=== PATIENT | female | born 1990 | race Caucasian/White ===

== ENCOUNTER 2020-01-31 09:59 | Emergency (ER) | payer MEDICARE, MEDICAID ==
[~2020-01-31] VITALS: Ht 167.6 cm; Wt 88.7 kg
[2020-01-31 10:00] VITALS: BP 129/78
[2020-01-31] MEDS ORDERED: penicillin G benzathine 1.2 million unit/2ml syringe IM ONE (10:45)
[2020-01-31] MEDS ORDERED: IBUP-1984 PO (11:07)
== END 2020-01-31 11:30 | disposition home or self-care (01) ==
LOC: ER 09:59
DX: J02.9 Acute pharyngitis, unspecified (principal); Z90.49 Acquired absence of other specified parts of digestive tract; Z79.899 Other long term (current) drug therapy
CPT/HCPCS: 87880; 96372; 99283; J0561

== ENCOUNTER 2020-06-24 18:46 | Emergency (ER) | payer MEDICARE, MEDICAID ==
[~2020-06-24] VITALS: Ht 167.6 cm; Wt 63.6 kg
[2020-06-24 18:51] VITALS: BP 139/78
[2020-06-24] MEDS ORDERED: ibuprofen tablet 400 MG TABLET PO ONE (18:55)
[2020-06-24] MEDS ORDERED: HYDROcodone/acetaminophen 10/325mg tab PO ONE (19:50)
[2020-06-24] MEDS ORDERED: HYDR-4353 PO (20:07)
== END 2020-06-24 20:57 | disposition home or self-care (01) ==
LOC: ER 18:46
DX: S82.831A Other fracture of upper and lower end of right fibula, initial encounter for closed fracture (principal); Z79.899 Other long term (current) drug therapy; W19.XXXA Unspecified fall, initial encounter; Y93.89 Activity, other specified; Y92.89 Other specified places as the place of occurrence of the external cause; Y99.8 Other external cause status
CPT/HCPCS: 29515; 73610; 99283

== ENCOUNTER 2020-07-15 12:52 | Day surgery (SDC) | payer MEDICARE, MEDICAID ==
[2020-07-09 15:11] LABS: BASOPHILS # (AUTO) 0.1 X10'3 (0-0.2); BASOPHILS % (AUTO) 0.8 % (0-1); EOSINOPHILS # (AUTO) 0.4 X10'3 (0-0.9); EOSINOPHILS % (AUTO) 3.3 % (0-6); LYMPHOCYTES # (AUTO) 2.9 X10'3 (1.1-4.8); LYMPHOCYTES % (AUTO) 23.3 % (21-51); MEAN CORPUSCULAR HEMOGLOBIN 27.2 PG (27.0-31.0); MEAN CORPUSCULAR HGB CONC 33.1 g/dL (33.0-36.5); MEAN CORPUSCULAR VOLUME 82.2 FL (78-98); MEAN PLATELET VOLUME 7.6 FL (7.4-10.4); MONOCYTES # (AUTO) 0.9 X10'3 (0-0.9); MONOCYTES % (AUTO) 7.1 % (2-12); NEUTROPHILS # (AUTO) 8.2 X10'3 (1.8-7.7); NEUTROPHILS % (AUTO) 65.5 % (42-75); PRE OP HEMATOCRIT 37.6 % (35.0-45.0); PRE OP HEMOGLOBIN 12.4 g/dL (12.0-16.0); PRE OP PLATELET COUNT 395 X10'3 (140-440); RED BLOOD COUNT 4.57 X10'6 (4.20-5.60); RED CELL DISTRIBUTION WIDTH 12.5 % (11.5-14.5)
[2020-07-09 15:17] LABS: ALBUMIN 3.4 G/DL (3.4-5.0); ALBUMIN/GLOBULIN RATIO 0.8 (1.1-1.5); ALKALINE PHOSPHATASE 80 IU/L (46-116); BLOOD UREA NITROGEN 14 MG/DL (7-18); BUN/CREATININE RATIO 18.2 (6.6-38.0); CALCIUM 8.7 MG/DL (8.5-10.1); CHLORIDE 102 MMOL/L (99-107); CREATININE 0.77 MG/DL (0.40-0.90); PRE OP ALT 16 U/L (30-65); PRE OP ANION GAP 11 (8-16); PRE OP AST 12 U/L (10-37); PRE OP BILIRUB, TOTAL 0.2 MG/DL (0.0-1.0); PRE OP GLUCOSE 97 MG/DL (70-104); PRE OP POTASSIUM 3.8 MMOL/L (3.4-5.1); PRE OP SODIUM 138 MMOL/L (135-145); TOTAL CARBON DIOXIDE 24.7 MMOL/L (24-32); TOTAL PROTEIN 7.7 G/DL (6.4-8.2); eGFR 87 ML/MIN
[2020-07-09 15:19] LABS: HCG SERUM QL NEGATIVE
[2020-07-15] VITALS (10 sets, daily range): BP systolic 106–137; BP diastolic 48–89
[~2020-07-15] VITALS: Ht 167.6 cm; Wt 68.0 kg
[~2020-07-15 12:52] MED LIST: HYDR-3973 PO; ceFAZolin 2gm in dextrose, iso 50 ML IV ONE; famotidine 20mg tablet PO ONE; ringers solution, lacted 1,000 ML IV SCH
[2020-07-15] MEDS ORDERED: MIDAZolam 5mg/5ml vial ONE (14:21)
[2020-07-15] MEDS ORDERED: fentaNYL/PF 50MCG/1 ML 2ML syringe ONE ×3 (14:21→16:17)
[2020-07-15] MEDS ORDERED: LIDOcaine 1%/PF 5ML 10 MG/ML VIAL ONE (14:24)
[2020-07-15] MEDS ORDERED: propofol inj 20 ML IV ONE (14:24)
[2020-07-15] MEDS ORDERED: ROPIVAcaine 0.5% (5mg/ml) 30ml vial ONE (14:24)
[2020-07-15] MEDS ORDERED: sevoflurane 250ml liquid IH ONE (14:35)
[2020-07-15] MEDS ORDERED: dexamethasone sod phosphate 10mg/ml inj ONE (14:35)
[2020-07-15] MEDS ORDERED: BUPIVAcaine/PF 2.5 mg/ml (0.25%) 30ml vial ONE (15:29)
[2020-07-15] MEDS ORDERED: ondansetron/PF 4mg/2ml inj ONE (16:34)
--- NOTE | 2020-07-15 17:08 | NUR ---
Received from OR via [facility] , accompanied by Anesthesiologist ALESSANDRA and report given by Anesthesiolgist. SPLINT RLE, TOES PWD. GATCHED FOOT OF BED. 20G LUE RUNNING LR AT 100ML. POS CAP REFIL. 10L MASK 96% SAT. VSS Addendum: 07/15/20 at 1723 by Kareem Stapleton RN, RN Amended: Links added.
[2020-07-15] MEDS ORDERED: ondansetron/PF 4mg/2ml inj IV ONE (18:15)
[2020-07-15] MEDS ORDERED: ringers solution, lacted 1,000 ML IV SCH (18:21)
[2020-07-15] MEDS ORDERED: morphine 4 MG/ML inj SYRINge IV PRN (18:25)
[2020-07-15] MEDS ORDERED: proCHLORperazine 10 MG/2 ml inj IV PRN (18:25)
[2020-07-15] MEDS ORDERED: ondansetron/PF 4mg/2ml inj IV PRN (18:25)
[2020-07-15] MEDS ORDERED: meperidine/PF 25mg/ml syringe IV PRN ×3 (18:25)
[2020-07-15] MEDS ORDERED: morphine 2 MG/ML inj. syringe IV PRN (18:25)
--- NOTE | 2020-07-15 18:49 | NUR ---
PATIENT AND FAMILY AND THEY HAVE VERBALIZED UNDERSTANDING, OPPORTUNITY TO ASK QUESTIONS GIVEN AND PATIENT COMFORTABLE WITH DC. IV TAKEN OUT WITHOUT COMPLICATION. PATIENT HAS MET ALL DC CRITERIA FOR DC HOME. I HAVE REVIEWED D/C INSTRUCTIONS WITH OUT VIA WHEELCHAIR WHERE PATIENT WAS TAKEN HOME WITH ALL BELONGINGS. FAMILY GAVE PATIENT TRANSPORT HOME. MAINTAINED NON WEIGHT BEARING. Addendum: 07/15/20 at 1851 by Kareem Stapleton RN, RN Amended: Links added.
== END 2020-07-15 18:49 | disposition home or self-care (01) ==
LOC: PAS 12:52
PROVIDERS: ATTEND Orthopaedic Surgery
DX: S82.61XA Displaced fracture of lateral malleolus of right fibula, initial encounter for closed fracture (principal); Z79.899 Other long term (current) drug therapy; Z20.828 Contact with and (suspected) exposure to other viral communicable diseases; G89.18 Other acute postprocedural pain; Z90.49 Acquired absence of other specified parts of digestive tract; Z98.42 Cataract extraction status, left eye; X58.XXXA Exposure to other specified factors, initial encounter; Y93.89 Activity, other specified; Y92.89 Other specified places as the place of occurrence of the external cause; Y99.8 Other external cause status
CPT/HCPCS: 27792; 36415; 64450; 73600; 76000; 76942; 80053; 82948; 84703; 85025; 87635; A6222; C1713; J1100; J2250; J2405; J2704; J3010; J3490; J7120; A4215; A4618; A6449; A7000; J2795

== ENCOUNTER 2023-11-15 04:20 | Emergency (ER) | payer MEDICARE, MEDICAID ==
[~2023-11-15] VITALS: Ht 167.6 cm; Wt 68.2 kg
[~2023-11-15 04:20] MED LIST changes: -ceFAZolin 2gm in dextrose, iso 50 ML IV ONE; -famotidine 20mg tablet PO ONE; -ringers solution, lacted 1,000 ML IV SCH
[2023-11-15] MEDS ORDERED: IBUP-1984 PO (04:39)
[2023-11-15] MEDS ORDERED: ibuprofen tablet 400 MG TABLET PO ONE (04:40)
[2023-11-15 04:52] VITALS: BP 124/93; PULSE 77; RESP 16; TEMP 98.5; O2SAT 98
[2023-11-15 05:09] LABS: STREP A SCREEN POSITIVE (Neg)
[2023-11-15] MEDS ORDERED: AMOX500C2 PO ×2 (05:12→05:13)
== END 2023-11-15 04:55 | disposition home or self-care (01) ==
LOC: ER 04:20
DX: J20.9 Acute bronchitis, unspecified (principal); Z79.899 Other long term (current) drug therapy
CPT/HCPCS: 87880; 99283

== ENCOUNTER 2025-04-12 21:05 | Emergency (ER) | payer MEDICARE, MEDICAID ==
[~2025-04-12] VITALS: Ht 167.6 cm; Wt 63.6 kg
[2025-04-12] MEDS ORDERED: AMOX500C2 PO (23:48)
--- NOTE | 2025-04-12 23:49 | Physician Documentation ---
History of Present Illness ~ Chief Complaint: Sore Throat Stated Complaint: STREP Time Seen by MD: 23:38 Primary Medical Doctor: [facility] Medication Reconciliation Allergies: Coded Allergies: No Known Allergies (Unverified , 11/15/23) Scheduled Amoxicillin Trihydrate* (Amoxicillin*), 2 CAP PO Q12H Hydrocodone Bit/Acetaminophen (Hydrocodone-Apap 10-325 Tablet), 1 TAB PO TID, (Reported) Past Medical History Past Medical History: No Pertinent History, UTI Past Surgical History: cholecystectomy Alcohol Use: None Drug Use: none Lives with: Spouse Lives In: Home Occupation: employed Physical Exam Vital Signs: Temperature: 98.6, Source: Oral, Heart Rate: 76, Respiratory Rate: 16, BP: 104/69, Pulse Oximetry: 98, Weight: 63.640 Oxygen Flow Rate: 0 Progress Results/Orders Results/Orders Completed Orders - ABDI SCHMIDT NP Amoxicillin Capsule (Trimox Capsule) (04/12/25 23:50) Vital Signs 04/12/25 04/13/25 21:14 00:05 Temp 98.6 98.6 Pulse 76 74 Resp 16 16 B/P (MAP) 104/69 109/70 Pulse Ox 98 99 O2 Flow Rate 0 Departure Disposition: 01 HOME / SELF CARE / HOMELESS Impression: Primary Impression: Irritation of pharynx Additional Impressions: Swelling of tonsil Sore throat Condition: Stable Discharge Instructions: Strep Throat, Adult Referrals: NO PRIMARY CARE PROVIDER (PCP) Prescriptions Amoxicillin Trihydrate* (Amoxicillin*) 500 Mg Capsule 2 CAP PO Q12H for 10 Days, #40 CAP Prov: ABDI SCHMIDT NP 04/12/25 Signature Scribe Signature: Attestation: The note accurately reflects work and decisions made by me.Abdi Schmidt - CARLITOS 04/12/25 23:46 ABDI SCHMIDT NP April 12, 2025 23:49
[2025-04-13] MEDS: amoxicillin 250mg capsule PO ONE
[2025-04-13 00:05] VITALS: BP 109/70; PULSE 74; RESP 16; TEMP 98.6; O2SAT 99
== END 2025-04-13 00:06 | disposition home or self-care (01) ==
LOC: ER 21:06
DX: J02.9 Acute pharyngitis, unspecified (principal); Z90.49 Acquired absence of other specified parts of digestive tract
CPT/HCPCS: 99283